=== PATIENT | female | born 1980 | race Caucasian/White ===

== ENCOUNTER 2023-04-06 10:17 | Outpatient (CLI) | payer OTHER | END 2023-04-06 14:50 | disposition home or self-care (01) | LOC: LAB 10:17 | DX: Z02.1 Encounter for pre-employment examination (principal) ==

== ENCOUNTER 2023-07-12 02:00 | Outpatient (CLI) | payer OTHER | END 2023-07-12 02:10 | disposition home or self-care (01) | LOC: PPH VACUNA 02:00 | PROVIDERS: ATTEND Emergency Medicine Pediatric Emergency Medicine | DX: Z23 Encounter for immunization (principal) | CPT/HCPCS: 90686; G0008 ==